=== PATIENT | female | born 1985 | race American Indian/Alaskan Native ===

== ENCOUNTER 2021-07-08 15:31 | Emergency (ER) | payer BC ==
[2021-07-08] MEDS ORDERED: FAMOTIDINE 20 MG TAB PO ONE (18:42)
[2021-07-08] MEDS ORDERED: diphenhydrAMINE 25 MG CAP PO ONE (18:42)
[2021-07-08] MEDS ORDERED: dexAMETHasone 20 MG/5 ML VIAL IM ONE (18:42)
--- NOTE | 2021-07-08 18:48 | Emergency Department Report ---
ED Allergic Reaction HPI - General Chief complaint: Allergic Reaction Stated complaint: ALLERGIC REACTION Time Seen by Provider: 07/08/21 18:42 Source: patient Mode of arrival: Ambulatory Limitations: No Limitations - History of Present Illness Initial Comments: Patient is a 35-year-old female presents emergency room with complaints of an allergic reaction that began on 07/06/2021. She reports that she is currently on a keto diet as she has diabetes and she was eating some keto Gummies and believes that there was citric peel present. She states that she has an allergy to orange juice, citric acid, amoxicillin, Keflex, erythromycin. She states she then began having diffuse urticaria and itching. She states that she has been taking Benadryl and Claritin without much relief. She denies any difficulty swallowing or difficulty breathing. - Related Data Previous Rx's Medication Instructions Recorded Last Taken Type Famotidine [Pepcid] 40 mg PO QHS #10 tablet 07/08/21 Unknown Rx Hydrocortisone 1% [Hydrocortisone 1 applicatio TP BID #1 tube 07/08/21 Unknown Rx 1% CREAM] Loratadine 10 mg PO DAILY #10 tablet 07/08/21 Unknown Rx Prednisone [predniSONE 10 mg 10 mg PO .TAPER #1 tab.ds.pk 07/08/21 Unknown Rx (6-Day Pack, 21 Tabs)] Allergies Allergy/AdvReac Type Severity Reaction Status Date / Time amoxicillin Allergy Severe Hives Verified 07/08/21 15:37 cephalexin Allergy Severe Hives Verified 07/08/21 15:37 citric acid Allergy Severe Hives Verified 07/08/21 15:37 erythromycin base Allergy Severe Hives Verified 07/08/21 15:37 Penicillins Allergy Severe Hives Verified 07/08/21 15:37 ED Review of Systems ROS: Stated complaint: ALLERGIC REACTION Other details as noted in HPI Comment: All other systems reviewed and negative ED Past Medical Hx - Medications Home Medications: Home Medications Medication Instructions Recorded Confirmed Last Taken Type Famotidine [Pepcid] 40 mg PO QHS #10 tablet 07/08/21 Unknown Rx Hydrocortisone 1% [Hydrocortisone 1 applicatio TP BID #1 tube 07/08/21 Unknown Rx 1% CREAM] Loratadine 10 mg PO DAILY #10 tablet 07/08/21 Unknown Rx Prednisone [predniSONE 10 mg 10 mg PO .TAPER #1 tab.ds.pk 07/08/21 Unknown Rx (6-Day Pack, 21 Tabs)] ED Physical Exam - General Limitations: No Limitations General appearance: alert, in no apparent distress - Head Head exam: Present: atraumatic, normocephalic - Eye Eye exam: Present: normal appearance - ENT ENT exam: Present: mucous membranes moist, other (uvula is midline no uvular edema or deviation) - Respiratory Respiratory exam: Absent: respiratory distress, accessory muscle use - Neurological Exam Neurological exam: Present: alert, oriented X3 - Psychiatric Psychiatric exam: Present: normal affect, normal mood - Skin Skin exam: Present: warm, dry, urticaria (diffuse urticaria) ED Course Vital Signs 07/08/21 07/08/21 15:39 19:42 Temperature 98 F 98.0 F Pulse Rate 89 76 Respiratory 18 16 Rate Blood Pressure 129/93 129/68 [Right] O2 Sat by Pulse 99 99 Oximetry ED Medical Decision Making - Medical Decision Making Patient is a 35-year-old female presents emergency room with complaints of an allergic reaction that began on 07/06/2021. She reports that she is currently on a keto diet as she has diabetes and she was eating some keto Gummies and believes that there was citric peel present. She states that she has an allergy to orange juice, citric acid, amoxicillin, Keflex, erythromycin. She states she then began having diffuse urticaria and itching. She states that she has been taking Benadryl and Claritin without much relief. She denies any difficulty swallowing or difficulty breathing. Vitals are stable. On exam patient has diffuse urticaria, no blistering, no skin denuding, no lip or tongue edema, uvula is midline, no uvular edema or deviation. Patient given Benadryl, Pepcid, dexamethasone IM while in the emergency department and her itching improved. Patient given prescription for medication. No signs of anaphylaxis or angioedema. Advised patient please take medication as prescribed. Follow-up with a primary care doctor. Return to emergency room for any new or worsening symptoms. Advised discussing with your primary care doctor about allergy testing and seeing an abrasives sales representative. Critical care attestation.: If time is entered above; I have spent that time in minutes in the direct care of this critically ill patient, excluding procedure time. ED Disposition Clinical Impression: Urticaria Disposition: HOME / SELF CARE / HOMELESS Is pt being admited?: No Does the pt Need Aspirin: No Condition: Stable Instructions: Hives Additional Instructions: please take medication as prescribed. Follow-up with a primary care doctor. Return to emergency room for any new or worsening symptoms. Advised discussing with your primary care doctor about allergy testing and seeing an abrasives sales representative. Prescriptions: Famotidine [Pepcid] 40 mg PO QHS #10 tablet Hydrocortisone 1% [Hydrocortisone 1% CREAM] 1 applicatio TP BID #1 tube Loratadine 10 mg PO DAILY #10 tablet Prednisone [predniSONE 10 mg (6-Day Pack, 21 Tabs)] 10 mg PO .TAPER #1 tab.ds.pk Referrals: BEN PRESTON MD [Staff Physician] - 3-5 Days [facility] [Provider Group] - 3-5 Days Time of Disposition: 18:46 Print Language: MONTSERRATIAN
[2021-07-08 19:43] VITALS: BP 129/68
== END 2021-07-08 19:42 | disposition home or self-care (01) ==
LOC: ED 15:31
DX: L50.9 Urticaria, unspecified (principal); Z88.0 Allergy status to penicillin; Z88.1 Allergy status to other antibiotic agents; Z91.018 Allergy to other foods
CPT/HCPCS: 96372; 99282; J1100